=== PATIENT | female | born 1990 | race Caucasian/White ===

== ENCOUNTER 2016-11-27 18:29 | Emergency (ER) | payer OTHER ==
[2016-11-27 20:37] LABS: HEMOGLOBIN 12.4 gm/dl (12.3-15.3); RED BLOOD COUNT 4.48 M/UL (4.00-5.10); WHITE BLOOD COUNT 8.8 K/UL (4.5-11.0)
[2016-11-27 21:00] LABS: BUN/CREATININE RATIO 10 (0-10)
== END 2016-11-27 22:45 | disposition home or self-care (01) ==
LOC: ER1 18:29
PROVIDERS: Physician Assistant
DX: O9A.211 Injury, poisoning and certain other consequences of external causes complicating pregnancy, first trimester (principal); S39.011A Strain of muscle, fascia and tendon of abdomen, initial encounter; O21.9 Vomiting of pregnancy, unspecified; Z90.49 Acquired absence of other specified parts of digestive tract; Z88.0 Allergy status to penicillin; Z88.5 Allergy status to narcotic agent; Z91.040 Latex allergy status; Z3A.10 10 weeks gestation of pregnancy; X58.XXXA Exposure to other specified factors, initial encounter
CPT/HCPCS: 36415; 80053; 81001; 82150; 83690; 85025; 87081; 87086; 87880; 96360; 96361; 99284